=== PATIENT | female | born 1985 | race Caucasian/White ===

== ENCOUNTER 2017-03-12 08:00 | Outpatient (CLI) | payer MEDICAID ==
[2017-03-12 13:00] LABS: BASOPHILS % (AUTO) 0.5 %; EOSINOPHILS # (AUTO) 0.1 10^3/uL (0.0-0.7); EOSINOPHILS % (AUTO) 1.3 %; HGB - HEMOGLOBIN 13.5 g/dL (12.0-16.0); LYMPHOCYTES # (AUTO) 2.3 10^3/uL (1.5-3.5); LYMPHOCYTES % (AUTO) 31.1 %; MEAN CORPUSCULAR HEMOGLOBIN 31.4 pg (27.0-31.0); MEAN CORPUSCULAR HGB CONC 34.5 g/dL (32.0-36.0); MONOCYTES # (AUTO) 0.6 10^3/uL (0.0-1.0); MONOCYTES % (AUTO) 8.2 %; NEUTROPHILS # (AUTO) 4.4 10^3/uL (1.5-6.6); NEUTROPHILS % (AUTO) 58.9 %; PLT - PLATELET COUNT 152 10^3/uL (130-450); RED CELL DISTRIBUTION WIDTH 13.1 % (12.0-15.0); WHITE BLOOD COUNT 7.4 x10^3/uL (4.8-10.8)
[2017-03-12 14:11] LABS: ALBUMIN 4.4 g/dL (3.2-5.5); ALBUMIN/GLOBULIN RATIO 1.5 (1.0-2.2); ALKALINE PHOSPHATASE 52 IU/L (42-121); ALT ALANINE AMINOTRANSFERASE 15 IU/L (10-60); AST ASPARTATE AMINOTRANSFERASE 19 IU/L (10-42); BILIRUBIN,TOTAL 0.3 mg/dL (0.2-1.0); BUN - BLOOD UREA NITROGEN 10 mg/dL (6-20); CALCIUM 9.1 mg/dL (8.5-10.3); CARBON DIOXIDE - CO2 30 mmol/L (21-32); CHLORIDE 103 mmol/L (101-111); CHOL/HDL RATIO 3.1 (<4.4); CHOLESTEROL 120 mg/dL; CREATININE 0.8 mg/dL (0.4-1.0); GFR - MDRD 82 (>89); GLUCOSE 92 mg/dL (70-100); HDL CHOLESTEROL 39 mg/dL; LDL CHOLESTEROL,CALCULATED 66 mg/dL; LDL/HDL RATIO 1.7 (<4.4); SODIUM 135 mmol/L (135-145); TOTAL PROTEIN 7.4 g/dL (6.7-8.2); VLDL CHOLESTEROL 15 mg/dL
== END 2017-03-12 08:01 | disposition home or self-care (01) ==
LOC: LAB.WCP 08:00
PROVIDERS: ATTEND Physician Assistant Medical
DX: Z00.00 Encounter for general adult medical examination without abnormal findings (principal)
CPT/HCPCS: 36415; 80053; 80061; 84443; 85025

== ENCOUNTER 2017-03-16 16:56 | Outpatient (CLI) | payer MEDICAID ==
[2017-03-16] MEDS ORDERED: IOPAMIDOL-300 100 ML VIAL ONE (17:34)
[2017-03-16] MEDS ORDERED: IOPAMIDOL-300 100 ML VIAL IVP ONE (18:15)
--- NOTE | 2017-03-17 11:45 | Ultrasound Report ---
DATE OF SERVICE: 03/16/2017 PELVIC ULTRASOUND: 03/16/2017 CLINICAL INDICATION: Left-sided ovarian cyst. TECHNIQUE: Transabdominal pelvic ultrasound performed for global evaluation. Transvaginal pelvic ultrasound performed for detailed evaluation. Real-time scanning performed and static images obtained. No previous exam is available for comparison. FINDINGS: The uterus is anteverted, measuring 10.2 x 4.7 x 3.5 cm. The endometrial echo complex measures 9 mm. No focal myometrial lesion is present. The right ovary measures 4.1 x 3.3 x 2.6 cm, and demonstrates a hemorrhagic 2.7 cm cyst. The left ovary measures 2.7 x 1.9 x 1.5 cm, and demonstrates follicles. No free fluid is present. IMPRESSION: Normal left ovary. Small hemorrhagic cyst in the right ovary. Normal uterus. TD: 03/17/2017 12:44
--- NOTE | 2017-03-17 12:14 | CT Report ---
DATE OF SERVICE: 03/16/2017 CT NECK WITH CONTRAST: 03/16/2017 CLINICAL INDICATION: Palpable abnormality, left neck, question lymphadenopathy. TECHNIQUE: Axial CT images of the neck were obtained with 80 mL Isovue 300 intravenously. A marker was placed at the site of palpable abnormality in the left anterior neck. No previous CT is available for comparison. In accordance with CT protocol optimization, one or more of the following dose reduction techniques were utilized for this exam: Automated exposure control, adjustment of mA and/or KV based on patient size, or use of iterative reconstructive technique. FINDINGS: The visualized orbital contents are unremarkable. There is mild mucosal thickening in the right maxillary sinus. There is no evidence of cervical lymphadenopathy. No mass lesion is seen at the site of palpable abnormality identified with the BB. The vascular structures enhance normally. The thyroid gland and salivary glands are unremarkable. The tracheal air column is widely patent throughout. Osseous structures are unremarkable. Limited evaluation of the lung apices is unremarkable. IMPRESSION: Mild chronic right maxillary sinus disease. No evidence of mass lesion at the site of palpable abnormality indicated with the BB. No cervical adenopathy. TD: 03/17/2017 13:13
== END 2017-03-16 16:57 | disposition home or self-care (01) ==
LOC: DI 16:56
PROVIDERS: ATTEND Physician Assistant Medical
DX: N83.292 Other ovarian cyst, left side (principal); N83.201 Unspecified ovarian cyst, right side; R59.0 Localized enlarged lymph nodes; J32.9 Chronic sinusitis, unspecified
CPT/HCPCS: 70491; 76830; 76856; Q9967

== ENCOUNTER 2017-03-16 17:00 | Outpatient (CLI) | payer MEDICAID | END 2017-03-16 17:01 | disposition home or self-care (01) | LOC: DI 17:00 | PROVIDERS: ATTEND Physician Assistant Medical | DX: Z53.9 Procedure and treatment not carried out, unspecified reason (principal) ==

== ENCOUNTER 2018-03-25 08:20 | Emergency (ER) | payer BC, MEDICAID ==
[2018-03-25 08:27] VITALS: BP 119/75
--- NOTE | 2018-03-25 08:33 | ED Physician Documentation ---
PD HPI URI - Stated complaint Stated Complaint: CONGESTION/SINUS PRESSURE - Chief complaint Chief Complaint: Resp - History obtained from History obtained from: Patient - History of Present Illness Timing - onset: How many months ago (2) Timing duration: Months (2) Timing details: Gradual onset, Still present (She started with marked cough after thanksgiving and it got severe. Seen PCP adn got Zpack and steroids, inhaler and some cough med. Had improved with still cough but now with 1-2 weeks of worse cough fully again, with coughing to point of vomiting and unable to catch breath. Also not able to smoke cannibis that had previously been used for chronic nausea and anxiety.) Associated symptoms: Chills, Dry cough, Chest pain (with coughing), Dyspnea. 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 denies: Fever, Chills Nose: denies: Rhinorrhea / runny nose, Congestion Throat: denies: Sore throat Cardiac: reports: Chest pain / pressure. denies: Palpitations Respiratory: reports: Dyspnea, Cough. denies: Wheezing GI: reports: Nausea (chronic). denies: Vomiting, Diarrhea Skin: denies: Rash, Lesions Psychiatric: reports: Anxiety, Insomnia PD PAST MEDICAL HISTORY - Past Medical History Cardiovascular: None Respiratory: None Neuro: None Endocrine/Autoimmune: None Psych: Anxiety, Eating disorder (bulimia, currently not symptomatic, using cannibis for nausea and appetite stimulation and anxiety. ) - Present Medications Home Medications: Ambulatory Orders Medication Instructions Recorded Confirmed Albuterol Sulfate [Proair Hfa 1 - 2 puffs INH Q4H PRN 03/25/18 03/25/18 Inhaler] Benzonatate [Tessalon Perle] 100 - 200 mg PO TID PRN #30 capsule 03/25/18 Clobetasol Propionate 50 ml TP DAILY 03/25/18 03/25/18 Cyclobenzaprine [Flexeril] 10 mg PO DAILY 03/25/18 03/25/18 Dexamethasone [Decadron] 4 mg PO DAILY #5 tablet 03/25/18 Fluticasone 44 Mcg [Flovent] 03/25/18 Fluticasone 44 Mcg [Flovent] 1 puffs INH BID 03/25/18 03/25/18 LORazepam [Ativan] 0.5 mg PO BID PRN #14 tablet 03/25/18 Meloxicam 7.5 mg PO DAILY 03/25/18 03/25/18 Ondansetron Odt [Zofran] 4 mg TL Q6H PRN #20 tablet 03/25/18 Sulfamethox/Trimeth 800/160 1 each PO BID #14 tablet 03/25/18 [Bactrim Ds 800/160] Venlafaxine ER [Effexor ER] 75 mg PO DAILY 03/25/18 03/25/18 guaiFENesin/CODEINE [Robitussin AC] 10 ml PO Q6H PRN #240 ml 03/25/18 - Allergies Allergies/Adverse Reactions: Allergies Allergy/AdvReac Type Severity Reaction Status Date / Time No Known Drug Allergies Allergy Verified 03/25/18 08:27 - Social History Does the pt smoke?: No Smoking Status: Former smoker Does the pt drink ETOH?: Yes Substance Use and Type: Marijuana PD ED PE NORMAL - Vitals Vital signs reviewed: Yes - General General: Alert and oriented X 3, No acute distress, Well developed/nourished, Other (some coughing episodes during exam that are repetitive and seem to take her breath away. No whooping per se.) - HEENT HEENT: Ears normal, Pharynx benign - Neck Neck: Supple, no meningeal sign, No adenopathy - Cardiac Cardiac: RRR, No murmur - Respiratory Respiratory: Clear bilaterally - Abdomen Abdomen: Soft, Non tender - Derm Derm: Normal color, Warm and dry - Extremities Extremities: No edema, No calf tenderness / cord - Neuro Neuro: Alert and oriented X 3, No motor deficit, Normal speech Results - Vitals Vitals: Vital Signs - 24 hr 03/25/18 08:25 Temperature 36.1 C L Heart Rate 104 H Respiratory 20 Rate Blood Pressure 119/75 O2 Saturation 100 Oxygen O2 Source Room air PD MEDICAL DECISION MAKING - ED course Complexity details: considered differential (pertussis like pattern and had improved with zpack and steroids to just some cough but worse fully again the past week. Also complains of nausea and anxiety that she usually treats with cannibis but has not been able to use that this week as inhaling makes her cough too badly. Does not get much effect from edibles. States had gotten CXR from PCP couple weeks ago and was normal. ), d/w patient Departure - Departure Disposition: 01 Home, Self Care Clinical Impression: Persistent cough for 3 weeks or longer, Pertussis-like syndrome Condition: Stable Record reviewed to determine appropriate education?: Yes Instructions: ED Bronchitis Asthmatic Follow-Up: Erin Shah PA-C [Primary Care Provider] - Prescriptions: Benzonatate [Tessalon Perle] 100 - 200 mg PO TID PRN #30 capsule PRN Reason: Cough Dexamethasone [Decadron] 4 mg PO DAILY #5 tablet guaiFENesin/CODEINE [Robitussin AC] 10 ml PO Q6H PRN #240 ml PRN Reason: Cough LORazepam [Ativan] 0.5 mg PO BID PRN #14 tablet PRN Reason: Anxiety Ondansetron Odt [Zofran] 4 mg TL Q6H PRN #20 tablet PRN Reason: Nausea / Vomiting Sulfamethox/Trimeth 800/160 [Bactrim Ds 800/160] 1 each PO BID #14 tablet Comments: For the cough and bronchial symptoms, I would suggest using the albuterol inhaler 2-3 puffs 4 times a day for the next 7-10 days. He can use extra times if needed for wheezing or trouble breathing. We will try a different antibiotic Bactrim twice daily for a week to see if that has better effect on the bronchitis. Decadron steroid daily for 5 more days and this is a lower dose than you have had the last time. Tessalon if needed for cough. Add Robitussin- AC cough medicine if needed. Regarding your anxiety and such, you could use ondansetron if needed for the nausea and appetite which is an antiemetic. Also short-term could use Lorazepam to help with anxiety and sleep. Follow-up with your primary care. Forms: Activity restrictions Discharge Date/Time: 03/25/18 09:13
[2018-03-25] MEDS ORDERED: DEXAMETHASONE 10 MG/ML VIAL PO STA (09:01)
[2018-03-25] MEDS ORDERED: BENZONATATE 100 MG CAPSULE PO STA (09:01)
[2018-03-25] MEDS ORDERED: guaiFENesin/DEXTROMETHORPHAN 10 ML UDC PO STA (09:01)
== END 2018-03-25 09:13 | disposition home or self-care (01) ==
LOC: ED 08:20
DX: R05 Cough (principal); F41.9 Anxiety disorder, unspecified; Z87.891 Personal history of nicotine dependence
CPT/HCPCS: 99283; A9270

== ENCOUNTER 2018-03-30 08:00 | Outpatient (CLI) | payer BC, MEDICAID | END 2018-03-30 23:59 | disposition home or self-care (01) | LOC: LAB.WCP 08:00 | PROVIDERS: ATTEND Family Medicine | DX: R05 Cough (principal) | CPT/HCPCS: 87801 ==

== ENCOUNTER 2018-07-19 15:27 | Outpatient (CLI) | payer MEDICAID ==
--- NOTE | 2018-07-19 15:49 | XRAY Report ---
Reason: HIP PAIN,LEFT Procedure Date: 07/19/2018 Accession Number: [id number] / [id number] Procedure: WCP - Hip w/Pelvis 2-3V LT CPT Code: FULL RESULT: EXAM: LEFT HIP RADIOGRAPHY EXAM DATE: 07/19/2018 03:40 PM. CLINICAL HISTORY: HIP PAIN,LEFT. COMPARISON: None. TECHNIQUE: 2 views. FINDINGS: Bones: Normal. No fractures or bone lesion. Joints: Normal. No dislocation. The hip joint space is preserved. Soft Tissues: Surgical clips are seen projecting over the left hip. IMPRESSION: No fracture or dislocation and no significant degenerative changes. RADIA
== END 2018-07-19 15:28 | disposition home or self-care (01) ==
LOC: DI.WCP 15:27
PROVIDERS: ATTEND Physician Assistant Medical
DX: M25.552 Pain in left hip (principal)

== ENCOUNTER 2018-07-19 15:28 | Outpatient (CLI) | payer MEDICAID ==
--- NOTE | 2018-07-19 15:49 | XRAY Report ---
Reason: SHOULDER PAIN,LEFT Procedure Date: 07/19/2018 Accession Number: [id number] / [id number] Procedure: WCP - Shoulder 2 View LT CPT Code: FULL RESULT: EXAM: LEFT SHOULDER RADIOGRAPHY EXAM DATE: 07/19/2018 03:40 PM. CLINICAL HISTORY: Shoulder pain, left. COMPARISON: None. TECHNIQUE: 2 views. FINDINGS: Bones: Normal. No fracture or bone lesion. Joints: The glenohumeral and acromioclavicular joints are normal. Soft tissues: The visualized hemithorax is unremarkable. No soft tissue swelling. IMPRESSION: Normal shoulder radiography. RADIA
== END 2018-07-19 15:29 | disposition home or self-care (01) ==
LOC: DI.WCP 15:28
PROVIDERS: ATTEND Physician Assistant Medical
DX: M25.512 Pain in left shoulder (principal); M25.552 Pain in left hip

== ENCOUNTER 2018-07-31 19:00 | Emergency (ER) | payer MEDICAID ==
--- NOTE | 2018-07-31 20:02 | ED Physician Documentation ---
PD HPI BACK PAIN - Stated complaint Stated Complaint: BACK PX - Chief complaint Chief Complaint: Back Pain - History obtained from History obtained from: Patient - History of Present Illness Timing - onset: Yesterday Timing - duration: Days (1-2) Timing - details: Gradual onset Location: Lower, Right, Left Quality: Pain, Spasm, Sharp Associated symptoms: Numbness (intermittent left anterior thigh). No: Fever, Weakness, Incontinent of urine Improves with: Rest Worsened by: Movement, Twisting, Other (she feels best with standing hunched over, and not fully straight in her back.) Contributing factors: Twisting (she had mopped the floor day prior without pain then, but felt stiff later in evening and awoke in the morning yesterday with stiffness and spasm on movement.) Similar symptoms before: No diagnosis (recurrent back pains without trauma in the past. Presumes some arthritis or disc problems, but has not had formal Dx.) Review of Systems Constitutional: denies: Fever, Chills, Myalgias Nose: denies: Rhinorrhea / runny nose, Congestion Throat: denies: Sore throat Cardiac: denies: Chest pain / pressure Respiratory: reports: Cough (mild coughing for few days) GI: denies: Abdominal Pain, Nausea, Vomiting, Diarrhea Skin: denies: Rash, Lesions Musculoskeletal: reports: Back pain (mostly left lower, with pain on ROM and with standing upright. Some pain to left anterior thigh at times, not continual.). denies: Neck pain Neurologic: denies: Focal weakness, Numbness PD PAST MEDICAL HISTORY - Past Medical History Past Medical History: Yes Cardiovascular: None Respiratory: Asthma Neuro: None Endocrine/Autoimmune: None Psych: Anxiety, Eating disorder Musculoskeletal: Osteoarthritis, Chronic back pain Derm: Other Other Past Medical History: folliculitis - Past Surgical History Past Surgical History: Yes General: Other - Present Medications Home Medications: Ambulatory Orders Medication Instructions Recorded Confirmed Albuterol Sulfate [Proair Hfa 1 - 2 puffs INH Q4H PRN 03/25/18 07/31/18 Inhaler] Benzonatate [Tessalon Perle] 100 - 200 mg PO TID PRN #30 capsule 03/25/18 Clobetasol Propionate 50 ml TP DAILY 03/25/18 03/25/18 Cyclobenzaprine [Flexeril] 10 mg PO DAILY 03/25/18 03/25/18 Fluticasone 44 Mcg [Flovent] 1 puffs INH BID 03/25/18 07/31/18 LORazepam [Ativan] 0.5 mg PO BID PRN #14 tablet 03/25/18 Ondansetron Odt [Zofran] 4 mg TL Q6H PRN #20 tablet 03/25/18 Sulfamethox/Trimeth 800/160 1 each PO BID #14 tablet 03/25/18 [Bactrim Ds 800/160] Venlafaxine ER [Effexor ER] 75 mg PO DAILY 03/25/18 07/31/18 dexAMETHasone [Decadron] 4 mg PO DAILY #5 tablet 03/25/18 guaiFENesin/CODEINE [Robitussin AC] 10 ml PO Q6H PRN #240 ml 03/25/[address] [Voltaren] 75 mg PO BID 07/31/18 07/31/18 Hydrocodone/Acetaminophen [[place] 1 - 2 each PO Q6H PRN #25 tablet 07/31/18 5-325 Tablet] Methocarbamol [Robaxin] 500 mg PO Q6H PRN #30 tablet 07/31/18 Spironolactone 25 mg PO BID 07/31/18 07/31/18 dexAMETHasone [Decadron] 4 mg PO DAILY #5 tablet 07/31/18 - Allergies Allergies/Adverse Reactions: Allergies Allergy/AdvReac Type Severity Reaction Status Date / Time No Known Drug Allergies Allergy Verified 07/31/18 19:10 - Social History Does the pt smoke?: Yes Smoking Status: Current every day smoker Does the pt drink ETOH?: Yes Substance Use and Type: Marijuana - Immunizations Immunizations are current?: Yes PD ED PE NORMAL - Vitals Vital signs reviewed: Yes - General General: Alert and oriented X 3, Well developed/nourished, Other (standing hunched over, with pain on ROM. No rash on back. Tender left and right lower paralumbar muscles, more to the left. ) - Abdomen Abdomen: Soft, Non tender - Back Back: No CVA TTP - Derm Derm: Normal color, Warm and dry, No rash - Neuro Neuro: Alert and oriented X 3, No motor deficit, No sensory deficit, Other Results - Vitals Vitals: Oxygen O2 Source Room air PD MEDICAL DECISION MAKING - ED course Complexity details: re-evaluated patient (improved with meds; can stand up straighter and move some without the spasms and sharp pain. ), considered differential (no red flags and seems can be treated with meds and did not see need for urgent imaging nor labs. ), d/w patient Departure - Departure Disposition: 01 Home, Self Care Clinical Impression: Low back strain Qualifiers: Encounter type: initial encounter Qualified Code(s): S39.012A - Strain of muscle, fascia and tendon of lower back, initial encounter Condition: Stable Record reviewed to determine appropriate education?: Yes Instructions: ED Low Back Pain Injury Follow-Up: Erin Shah PA-C [Primary Care Provider] - Prescriptions: dexAMETHasone [Decadron] 4 mg PO DAILY #5 tablet Hydrocodone/Acetaminophen [[place] 5-325 Tablet] 1 - 2 each PO Q6H PRN #25 tablet PRN Reason: Pain Methocarbamol [Robaxin] 500 mg PO Q6H PRN #30 tablet PRN Reason: Spasms Comments: Heat and gentle stretching for the low back to reduce spasms and stiffness. Continued stretching for the back will be good. No heavy lifting or vigorous activity for the next few days until improved. Physical treatment such as chiropractic and massage are good to try. Continue your anti-inflammatory at home. Add Decadron steroid anti-inflammatory daily as well. Methocarbamol muscle relaxant for stiffness and spasm. Add Tylenol or hydrocodone as needed for pain. Recheck if not improving well over the next several days. Discharge Date/Time: 07/31/18 20:49
[2018-07-31] MEDS ORDERED: CHERRY SYRUP 10 ML UDC PO ONE (20:14)
[2018-07-31] MEDS ORDERED: KETOROLAC 30 MG/ML VIAL IM STA (20:14)
[2018-07-31] MEDS ORDERED: HYDROmorphone 2 MG/ML VIAL IM STA (20:14)
[2018-07-31] MEDS ORDERED: HYDROcod/ACET 5/325 Prepack 4 PO STA (20:14)
[2018-07-31] MEDS ORDERED: DEXAMETHASONE 10 MG/ML VIAL PO STA (20:14)
[2018-07-31] MEDS ORDERED: METHOCARBAMOL 500 MG TABLET PO STA (20:14)
[2018-07-31 20:49] VITALS: BP 117/65
== END 2018-07-31 20:49 | disposition home or self-care (01) ==
LOC: ED 19:00
DX: S33.5XXA Sprain of ligaments of lumbar spine, initial encounter (principal); X50.1XXA Overexertion from prolonged static or awkward postures, initial encounter; Y93.E5 Activity, floor mopping and cleaning; Y92.009 Unspecified place in unspecified non-institutional (private) residence as the place of occurrence of the external cause; G89.29 Other chronic pain; M54.9 Dorsalgia, unspecified; M19.90 Unspecified osteoarthritis, unspecified site; F41.9 Anxiety disorder, unspecified; J45.909 Unspecified asthma, uncomplicated; F17.200 Nicotine dependence, unspecified, uncomplicated; Z79.51 Long term (current) use of inhaled steroids
CPT/HCPCS: 96372; 99283; A9270; J1170

== ENCOUNTER 2018-08-16 15:22 | Outpatient (CLI) | payer MEDICAID ==
[2018-08-16 19:10] LABS: CALCIUM 9.1 mg/dL (8.5-10.3); CREATININE 0.7 mg/dL (0.4-1.0)
== END 2018-08-16 23:59 | disposition home or self-care (01) ==
LOC: LAB.WCP 15:22
PROVIDERS: ATTEND Physician Assistant Medical
DX: L73.9 Follicular disorder, unspecified (principal)
CPT/HCPCS: 36415; 80048

== ENCOUNTER 2018-12-14 10:31 | Outpatient (CLI) | payer MEDICAID ==
--- NOTE | 2018-12-14 11:16 | XRAY Report ---
Reason: LEFT SHOULDER PAIN Procedure Date: 12/14/2018 Accession Number: [id number] / [id number] Procedure: WCP - Shoulder 3 View LT CPT Code: FULL RESULT: EXAM: LEFT SHOULDER RADIOGRAPHY EXAM DATE: 12/14/2018 10:48 AM. CLINICAL HISTORY: Left shoulder pain. COMPARISON: SHOULDER 2 VIEW LT 07/19/2018 3:28 PM. TECHNIQUE: 3 views. FINDINGS: Bones: Normal. No fracture or bone lesion. Joints: There is mild elevation of the clavicle not exceeding the superior border of the acromion. Question [place] type II AC joint injury. Glenohumeral articulation is intact. Soft tissues: The visualized hemithorax is unremarkable. No soft tissue swelling. IMPRESSION: Suspect AC joint injury. Correlate to physical examination for AC joint. RADIA
== END 2018-12-14 23:59 | disposition home or self-care (01) ==
LOC: DI.WCP 10:31 → EDSTATUS 12:34 → DI.WCP 23:59
PROVIDERS: ATTEND Nurse Practitioner Family
DX: M25.512 Pain in left shoulder (principal)

== ENCOUNTER 2019-02-05 12:12 | Outpatient (CLI) | payer MEDICAID ==
--- NOTE | 2019-02-06 23:58 | MRI Report ---
Reason: LT NECK PAIN Procedure Date: 02/05/2019 Accession Number: [id number] / [id number] Procedure: MRI - Cervical Spine W/O CPT Code: Final Report FULL RESULT: EXAM: MRI CERVICAL SPINE WITHOUT CONTRAST EXAM DATE: 02/05/2019 12:23 PM. CLINICAL HISTORY: Left neck pain. COMPARISONS: CERVICAL SPINE 2 VIEW 12/10/2017 3:26 PM. TECHNIQUE: Multiplanar, multisequence T1-weighted and fluid-sensitive sequences of the cervical spine without contrast. Other: None. FINDINGS: Neurologic Structures: The visualized posterior fossa structures are unremarkable. No signal abnormality in the visualized spinal cord. Alignment: Retrolisthesis at C5-C6 measures 1-2 mm. Bone Marrow: There appeared to be a combination of type I1 and type 3 Modic endplate changes at C5-C6. Interspace Levels/Facets: C1-C2: Unremarkable. C2-C3: Unremarkable. C3-C4: Unremarkable. C4-C5: Unremarkable. C5-C6: A disk bulge results in mild spinal canal stenosis without impingement of the spinal cord. There is mild bilateral foraminal narrowing due to uncovertebral hypertrophy. C6-C7: A disk bulge results in mild spinal canal stenosis with impingement of the spinal cord. There is mild bilateral foraminal narrowing due to uncovertebral hypertrophy. C7-T1: Unremarkable. Musculature: Normal. No edema or fatty atrophy. Other: The paravertebral and prevertebral soft tissues are normal. IMPRESSION: 1. Normal cervical spinal cord signal intensity. 2. Type 1 and type 3 Modic endplate changes are present at C5-C6. 3. Mild degenerative changes are present at C5-C6 and C6-C7 without high-grade spinal canal or foraminal stenosis. RADIA
== END 2019-02-05 12:13 | disposition home or self-care (01) ==
LOC: DI 12:12
PROVIDERS: ATTEND Physician Assistant Medical
DX: M47.812 Spondylosis without myelopathy or radiculopathy, cervical region (principal); M50.322 Other cervical disc degeneration at C5-C6 level
CPT/HCPCS: 72141

== ENCOUNTER 2019-02-28 09:20 | Outpatient (CLI) | payer MEDICAID ==
[2019-02-28 14:07] LABS: CALCIUM 8.7 mg/dL (8.5-10.3); CREATININE 0.7 mg/dL (0.4-1.0)
== END 2019-02-28 23:59 | disposition home or self-care (01) ==
LOC: LAB.WCP 09:20
PROVIDERS: ATTEND Physician Assistant Medical
DX: R25.3 Fasciculation (principal)
CPT/HCPCS: 36415; 80048

== ENCOUNTER 2019-05-03 15:47 | Outpatient (CLI) | payer MEDICAID ==
--- NOTE | 2019-05-04 08:35 | MRI Report ---
Reason: ABD PAIN Procedure Date: 05/03/2019 Accession Number: [id number] / [id number] Procedure: MRI - Hip RT W/O CPT Code: Final Report FULL RESULT: EXAM: RIGHT HIP MRI WITHOUT CONTRAST EXAM DATE: 05/03/2019 05:28 PM. CLINICAL HISTORY: Abdominal pain. COMPARISON: None. TECHNIQUE: Multiplanar, multisequence T1-weighted and fluid-sensitive, small [id number] sequences of the hip and large nyfng-jp-lwak sequences of the pelvis without contrast. Other: None. FINDINGS: Bones: No fractures or subluxations. No marrow edema or bone lesions. Right Hip: No acetabular retroversion. Femoral head/neck offset is within normal limits. No effusion or loose bodies. The articular cartilage is intact. Partial tear superior acetabular labrum (image 14 series 801). Possible focal linear tear base anterior labrum right hip (image 24 series 601 and image 10 series 701). The ligamentum teres is intact. Right hip alpha angle 32 degrees. Other Joints: The visualized lumbar spine, sacroiliac joints, symphysis pubis, and contralateral hip are unremarkable. Musculature: No edema or fatty atrophy. The gluteus medius and minimus tendons are normal. The visualized hamstring tendons are normal. The ischiofemoral space is normal. Pelvic Cavity: Right ovary 4.2 x 3.4 x 4.1 cm hemorrhagic cyst. The visualized viscera are unremarkable. No lymphadenopathy. No free fluid in the pelvis. Other: The visualized sciatic nerves are unremarkable. No bursitis. The subcutaneous tissues are unremarkable. IMPRESSION: 1. Probable partial tear superior right hip acetabular labrum (image 15 series 801). 2. Possible complete linear intermediate-signal tear base anterior right acetabulum (image 12 series 901 and image 24 series 601). 3. Labrum tears may be confirmed with MR arthrogram. 4. Right ovary 4.2 x 3.4 x 4.1 cm hemorrhagic cyst. RADIA
== END 2019-05-03 15:48 | disposition home or self-care (01) ==
LOC: DI 15:47
PROVIDERS: ATTEND Physician Assistant Medical
DX: M25.551 Pain in right hip (principal)

== ENCOUNTER 2019-11-25 12:55 | Outpatient (CLI) | payer OTHER, MEDICAID | END 2019-11-25 12:56 | disposition critical access hospital (66) | LOC: EMS 12:55 | PROVIDERS: ATTEND Surgery | DX: M54.2 Cervicalgia (principal); M79.632 Pain in left forearm; M25.511 Pain in right shoulder | CPT/HCPCS: A0425; A0429 ==

== ENCOUNTER 2019-11-25 13:18 | Emergency (ER) | payer OTHER, MEDICAID ==
[2019-11-25] MEDS ORDERED: KETOROLAC 30 MG/ML VIAL IVP STA (13:25)
[2019-11-25] MEDS ORDERED: LORazepam 2 MG/ML VIAL IVP STA (13:25)
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
[2019-11-25 13:36] VITALS: BP 123/90
[2019-11-25 13:40] LABS: BILIRUBIN,URINE NEGATIVE (NEGATIVE); GLUCOSE, URINE (UA) NEGATIVE (NEGATIVE); KETONES,URINE (UA) NEGATIVE (NEGATIVE); LEUKOCYTE ESTERASE, URINE NEGATIVE (NEGATIVE); NITRITE,URINE NEGATIVE (NEGATIVE); OCCULT BLOOD,URINE LARGE (NEGATIVE); PH,URINE 7.5 PH (5.0-7.5); PROTEIN,URINE NEGATIVE (NEGATIVE); UROBILINOGEN,URINE 0.2 (NORMAL) E.U./dL (NORMAL)
[2019-11-25 13:41] LABS: CLARITY,URINE HAZY (CLEAR); HCG UR QUAL NEGATIVE
[2019-11-25 13:55] LABS: BACTERIA,URINE Rare /HPF (None Seen); RBC,URINE TNTC /HPF (0-5); SQUAMOUS EPITHELIAL CELL,UR MOD Squamous (<= Few)
== END 2019-11-25 14:48 | disposition home or self-care (01) ==
LOC: ED 13:18
DX: S16.1XXA Strain of muscle, fascia and tendon at neck level, initial encounter (principal); V48.0XXA Car driver injured in noncollision transport accident in nontraffic accident, initial encounter; Y92.410 Unspecified street and highway as the place of occurrence of the external cause; F41.9 Anxiety disorder, unspecified; F17.200 Nicotine dependence, unspecified, uncomplicated
CPT/HCPCS: 81001; 81025; 96374; 99283; 99284; J2060; 81003; 87086

== ENCOUNTER 2019-12-19 16:21 | Outpatient (CLI) | payer MEDICAID ==
--- NOTE | 2019-12-22 12:23 | XRAY Report ---
PROCEDURE: Cervical Spine 2 View INDICATIONS: LEFT SIDE NECK PAIN TECHNIQUE: 3 view(s) of the cervical spine were acquired. COMPARISON: None. FINDINGS: Bones: No fractures or dislocations to the T1 level. The lateral masses of C1 appear intact on the odontoid view. No suspicious bony lesions. There is mild joint space narrowing at C5-6 and C6-7. Soft tissues: No prevertebral soft tissue swelling. IMPRESSION: 1. No acute abnormality. No fracture. 2. Mild joint space narrowing at C5-6 and C6-7 consistent with mild chronic disc disease. Reviewed by: Chaz Tariq on 12/19/2019 4:23 PM PDT Approved by: Chaz Tariq on 12/19/2019 4:23 PM PDT Station ID: [id number]
== END 2019-12-19 23:59 | disposition home or self-care (01) ==
LOC: DI.WCP 16:21
PROVIDERS: ATTEND Physician Assistant Medical
DX: M50.322 Other cervical disc degeneration at C5-C6 level (principal)
CPT/HCPCS: 72040